=== PATIENT | female | born 1955 | race Caucasian/White ===

== ENCOUNTER 2016-11-11 11:41 | Outpatient (CLI) | payer OTHER ==
[2016-11-11 12:53] LABS: #Basophils 0.1 thou/uL (0.0-0.2); #Eosinphils 0.2 thou/uL (0.0-0.7); #Lymphocytes 1.9 thou/uL (1.20-3.40); #Monocytes 0.7 thou/uL (0.11-0.59); #Neutrophils 7.1 thou/uL (1.40-6.50); %Basophils 0.5 % (0.0-1.0); %Eosinophils 1.9 % (0.0-10.0); %Monocytes 6.6 % (0.0-10.0); Hematocrit 38.7 % (36.0-47.0); Mean Platelet Volume 5.4 fL (7.4-10.4); Red Blood Cell (RBC) Count 4.17 mill/uL (4.20-5.40); White Blood Cell (WBC) Count 9.9 thou/uL (4.8-10.8)
[2016-11-11 13:11] LABS: Hemoglobin A1c 5.7 % (4.0-6.0)
[2016-11-11 13:13] LABS: ALT (SGPT) 21 U/L (0-55); AST (SGOT) 16 U/L (5-34); Alkaline Phosphatase 94 U/L (40-150); Anion Gap 14 mmol/L (10-20); BUN (Urea Nitrogen) 11 mg/dL (9.8-20.1); Bilirubin, Total 0.3 mg/dL (0.2-1.2); Calc. Creatinine Clearance 0 mL/min (70-130); Calcium 8.8 mg/dL (7.8-10.44); Carbon Dioxide 26 mmol/L (23-31); Chloride 106 mmol/L (98-107); Estimated GFR-MDRD 71; Globulin 2.2 g/dL (2.4-3.5); LDL Cholesterol, Calculated 97 mg/dL; Protein, Total 6.1 g/dL (5.8-8.1)
== END 2016-11-11 11:42 ==
LOC: HPCALD 11:41
PROVIDERS: ATTEND Family Medicine
DX: I10 Essential (primary) hypertension (principal); E78.5 Hyperlipidemia, unspecified; E55.9 Vitamin D deficiency, unspecified; Z86.39 Personal history of other endocrine, nutritional and metabolic disease
CPT/HCPCS: 36415; 80053; 80061; 82306; 83036; 85025

== ENCOUNTER 2017-05-25 13:30 | Outpatient (CLI) | payer OTHER ==
[2017-05-25 15:50] LABS: #Basophils 0.1 thou/uL (0.0-0.2); #Eosinphils 0.2 thou/uL (0.0-0.7); #Lymphocytes 2.1 thou/uL (1.20-3.40); #Monocytes 0.8 thou/uL (0.11-0.59); #Neutrophils 7.8 thou/uL (1.40-6.50); %Basophils 0.9 % (0.0-1.0); %Eosinophils 1.8 % (0.0-10.0); %Lymphocytes 19.1 % (21.0-51.0); %Monocytes 6.8 % (0.0-10.0); %Neutrophils 71.3 % (42.0-75.0); Hemoglobin 13.5 g/dL (12.0-16.0); Mean Corpuscular HGB CONC 33.3 g/dL (32.0-36.0); Mean Corpuscular Hemoglobin 29.4 pg (27.0-31.0); Mean Corpuscular Volume 88.3 fl (81.0-99.0); Mean Platelet Volume 5.8 fL (7.4-10.4); Platelet Count 370 thou/uL (130-400); RBC Distribution Width 13.2 % (11.5-14.5); Red Blood Cell (RBC) Count 4.57 mill/uL (4.20-5.40); White Blood Cell (WBC) Count 10.9 thou/uL (4.8-10.8)
[2017-05-25 16:09] LABS: ALT (SGPT) 17 U/L (8-55); AST (SGOT) 18 U/L (5-34); Albumin 4.1 g/dL (3.4-4.8); Alkaline Phosphatase 98 U/L (40-150); Anion Gap 15 mmol/L (10-20); BUN (Urea Nitrogen) 14 mg/dL (9.8-20.1); Bilirubin, Total 0.3 mg/dL (0.2-1.2); Calc. Creatinine Clearance 0 mL/min (70-130); Calcium 8.5 mg/dL (7.8-10.44); Carbon Dioxide 25 mmol/L (23-31); Chloride 106 mmol/L (98-107); Estimated GFR-MDRD 68; Globulin 2.5 g/dL (2.4-3.5); Glucose 95 mg/dL (80-115); Potassium 4.4 mmol/L (3.5-5.1); Protein, Total 6.6 g/dL (6.0-8.3); Sodium 142 mmol/L (136-145)
[2017-05-25 16:26] LABS: Free T4 (Free Thyroxine) 0.97 ng/dL (0.70-1.48); Thyroid Stimulating Hormone 1.7951 uIU/mL (0.35-4.94); Vitamin D, 25 Hydroxy 30.2 ng/ml (> 30.0)
== END 2017-05-25 13:31 | disposition home or self-care (01) ==
LOC: HPCALD 13:30
PROVIDERS: ATTEND Family Medicine
DX: N39.0 Urinary tract infection, site not specified (principal); E03.9 Hypothyroidism, unspecified; E55.9 Vitamin D deficiency, unspecified; I10 Essential (primary) hypertension
CPT/HCPCS: 36415; 80053; 82306; 84439; 84443; 85025; 87086

== ENCOUNTER 2018-10-07 11:43 | Outpatient (CLI) | payer MEDICARE ==
--- NOTE | 2018-10-07 18:20 | RAD ---
RIGHT KNEE FOUR VIEWS: 10/07/18 No fracture or joint effusion was seen. the articular surfaces of the joint are smooth. There is at m ost minimal medial joint space narrowing but no large osteophytes. IMPRESSION: No acute finding. POS: HOME
== END 2018-10-07 11:44 | disposition home or self-care (01) ==
LOC: BURRAD 11:43
PROVIDERS: ATTEND Family Medicine
DX: M25.561 Pain in right knee (principal)

== ENCOUNTER 2020-04-16 11:30 | Outpatient (CLI) | payer MEDICARE ==
--- NOTE | 2020-04-16 17:32 | RAD ---
LUMBAR SPINE THREE VIEWS: Date: 04-16-2020 FINDINGS: Three views show no fracture or acute bony change. Minimal spondylolisthesis of L4 on L5 appears to b e due to facet arthritis. Minor osteophytes are seen in the lower thoracic region. The SI joints are symmetrical. Assuming the film is correctly labelled, gas in the stomach suggests that the duodenal bulb lies to t he left of the midline rather than right. I am not sure of the significance of this finding. I note t hat there are clips in the right upper quadrant which I presume are from a prior cholecystectomy, how ever, there is also an ovoid soft tissue density in the vicinity of where the gallbladder would be th at resembles a gallbladder. It may just be fluid filled bowel. If the patient continues with abdomina l symptoms, than it might be worthwhile doing a CT of her abdomen to sort out any potential pathology or anatomical variance in this region. IMPRESSION: 1. Minor degenerative changes of the spine, but no acute findings. 2. See comments above regarding findings in the upper abdomen. If GI symptoms predominate, a CT would be indicated as there are several areas whose exact etiology are not completely clear. Code T POS: HOME
== END 2020-04-16 11:31 | disposition home or self-care (01) ==
LOC: BURRAD 11:30
PROVIDERS: ATTEND Family Medicine
DX: M54.5 Low back pain (principal); M47.816 Spondylosis without myelopathy or radiculopathy, lumbar region
CPT/HCPCS: 72100

== ENCOUNTER 2020-04-16 12:07 | Emergency (ER) | payer MEDICARE ==
[2020-04-16 12:39] LABS: #Basophils 0.2 thou/uL (0.0-0.2); #Eosinphils 0.2 thou/uL (0.0-0.7); #Lymphocytes 3.3 thou/uL (1.20-3.40); #Monocytes 0.9 thou/uL (0.11-0.59); #Neutrophils 7.2 thou/uL (1.40-6.50); %Basophils 1.3 % (0.0-1.0); %Lymphocytes 27.7 % (21.0-51.0); %Monocytes 7.8 % (0.0-10.0); %Neutrophils 61.2 % (42.0-75.0); Hemoglobin 13.1 g/dL (12.0-16.0); Mean Corpuscular HGB CONC 31.2 g/dL (32.0-36.0); Mean Corpuscular Hemoglobin 28.9 pg (27.0-31.0); Mean Corpuscular Volume 92.7 fL (78.0-98.0); Mean Platelet Volume 5.7 fL (7.4-10.4); Platelet Count 307 thou/uL (130-400); RBC Distribution Width 13.5 % (11.5-14.5); Red Blood Cell (RBC) Count 4.51 mill/uL (4.20-5.40); White Blood Cell (WBC) Count 11.8 thou/uL (4.8-10.8)
[2020-04-16] MEDS ORDERED: Meclizine HCl 25 MG TAB ONE (12:47)
[2020-04-16 12:53] LABS: ALT (SGPT) 20 U/L (8-55); AST (SGOT) 21 U/L (5-34); Alkaline Phosphatase 75 U/L (40-110); Anion Gap 14 mmol/L (10-20); BUN (Urea Nitrogen) 13 mg/dL (9.8-20.1); Bilirubin, Total 0.4 mg/dL (0.2-1.2); CK (CPK) 717 U/L (29-168); Calc. Creatinine Clearance 0 mL/min (70-130); Calcium 8.8 mg/dL (7.8-10.44); Carbon Dioxide 24 mmol/L (23-31); Chloride 106 mmol/L (98-107); Estimated GFR-MDRD 74; Globulin 2.6 g/dL (2.4-3.5); Glucose 123 mg/dL (80-115); Potassium 3.8 mmol/L (3.5-5.1); Protein, Total 6.6 g/dL (6.0-8.3); Sodium 140 mmol/L (136-145)
--- NOTE | 2020-04-16 13:49 | RAD ---
PORTABLE CHEST: Date: 04-16-2020 FINDINGS: An AP portable film at 1247 shows mild cardiomegaly but no congestive change. The lungs are clear. Th ere are no effusions. IMPRESSION: Mild cardiomegaly. POS: HOME
== END 2020-04-16 14:05 | disposition home or self-care (01) ==
LOC: BURERS 12:07
DX: R55 Syncope and collapse (principal); I10 Essential (primary) hypertension; E78.00 Pure hypercholesterolemia, unspecified; E03.9 Hypothyroidism, unspecified; F32.9 Major depressive disorder, single episode, unspecified
CPT/HCPCS: 71045; 80053; 82550; 83880; 84484; 85025; 93005; 96360

== ENCOUNTER 2020-05-08 07:56 | Outpatient (CLI) | payer MEDICARE ==
--- NOTE | 2020-05-08 14:33 | CT ---
CT OF THE ABDOMEN WITH AND WITHOUT CONTRAST: DATE: 05/08/2020. FINDINGS: Spiral CT of the abdomen was done pre- and post-IV contrast for evaluation of abdominal pain and equi vocal findings on a recent plain radiograph. The lung bases are clear. The liver, spleen, pancreas, adrenal gland, and abdominal aorta showed no acute findings. There has been a prior cholecystectomy. The right kidney is slightly malrotated but otherwise appears normal. There appears to be moderate h ydronephrosis, and as best as I can tell, it is probably due to UPJ narrowing (likely longstanding). I believe it is this rather than a large parapelvic cyst. The left ureter is normal in size from it s origin at the renal pelvis through the lower abdomen. There is a very vague, nondescript lucency i n the lower pole of the left kidney. Statistically, this is most likely a cyst; however, I would rec ommend doing an elective ultrasound to be sure that this is only a cyst and nothing solid. The bowel shows no distention or significant wall thickening. No inflammatory changes are seen aroun d bowel. There is a small fat-filled ventral hernia in the midline in the epigastric region and a 2n d small fat-filled umbilical hernia at that level. Regarding the equivocal soft tissue abnormality seen on the recent plain film, I do not see any actua l mass or abnormality of concern to explain the shadows. Thus, they were most likely unopacified bow el. IMPRESSION: 1. No acute findings to explain any generalized abdominal pain. 2. Moderate left hydronephrosis that appears to be due to due to ureteropelvic junction narrowing, l ikely longstanding). 3. Vague lucency, no bigger than 1 cm, in the lower left kidney that is statistically most likely a cyst. An elective ultrasound should be considered to be sure. This might be done in concert with re ferral to a urologist to determine if any action is needed regarding the apparent ureteropelvic junct ion narrowing. POS: HOME
[2020-05-08] MEDS ORDERED: Iopamidol 370 76% 100 ML VIAL ONE (15:58)
== END 2020-05-08 07:57 | disposition home or self-care (01) ==
LOC: BURCT 07:56
PROVIDERS: ATTEND Family Medicine
DX: R10.84 Generalized abdominal pain (principal); R93.7 Abnormal findings on diagnostic imaging of other parts of musculoskeletal system; R19.01 Right upper quadrant abdominal swelling, mass and lump; N13.0 Hydronephrosis with ureteropelvic junction obstruction
CPT/HCPCS: 74170; Q9967

== ENCOUNTER 2020-09-20 08:52 | Outpatient (CLI) | payer MEDICARE ==
--- NOTE | 2020-09-20 11:38 | RAD ---
ABDOMEN 1 VIEW: DATE: 09/20/2020. FINDINGS: Supine views show no dilation of bowel to suggest obstruction. The amount of fecal material in the c olon has mildly increased. No calcifications of concern were seen. The lung bases seem clear. Clip s are noted in the right upper quadrant, probably from a prior cholecystectomy. IMPRESSION: Mild constipation. POS: [facility]
== END 2020-09-20 08:53 | disposition home or self-care (01) ==
LOC: BURRAD 08:52
PROVIDERS: ATTEND Family Medicine
DX: R15.9 Full incontinence of feces (principal); K59.00 Constipation, unspecified
CPT/HCPCS: 74018

== ENCOUNTER 2021-01-24 08:46 | Outpatient (CLI) | payer MEDICARE | END 2021-01-24 08:47 | disposition home or self-care (01) | LOC: BURRAD 08:46 | PROVIDERS: ATTEND Registered Nurse Community Health | DX: R06.02 Shortness of breath (principal) | CPT/HCPCS: 71046 ==

== ENCOUNTER 2021-01-31 08:27 | Emergency (ER) | payer MEDICARE ==
[2021-01-31 17:06] LABS: SARS-CoV-2 PCR by NAA Not Detected (NotDetected)
== END 2021-01-31 09:00 | disposition home or self-care (01) ==
LOC: BURERS 08:27
DX: J06.9 Acute upper respiratory infection, unspecified (principal); Z20.822 Contact with and (suspected) exposure to COVID-19; I10 Essential (primary) hypertension
CPT/HCPCS: 87635; 99283; U0003; U0005

== ENCOUNTER 2021-06-28 14:00 | Emergency (ER) | payer MEDICARE, OTHER ==
[2021-06-29 20:57] LABS: SARS-CoV-2 PCR by NAA Not Detected (NotDetected)
== END 2021-06-28 15:09 | disposition home or self-care (01) ==
LOC: BURERS 14:00
DX: Z20.822 Contact with and (suspected) exposure to COVID-19 (principal); I10 Essential (primary) hypertension
CPT/HCPCS: U0003; U0005; 99283

== ENCOUNTER 2021-08-14 14:08 | Emergency (ER) | payer MEDICARE, OTHER | END 2021-08-14 14:35 | disposition home or self-care (01) | LOC: BURERS 14:08 | DX: L03.116 Cellulitis of left lower limb (principal); I10 Essential (primary) hypertension; R60.0 Localized edema | CPT/HCPCS: 99283 ==

== ENCOUNTER 2021-09-03 12:02 | Outpatient (CLI) | payer MEDICARE | END 2021-09-03 12:03 | disposition home or self-care (01) | LOC: BURRAD 12:02 | PROVIDERS: ATTEND Family Medicine | DX: M54.50 Low back pain, unspecified (principal) | CPT/HCPCS: 72100 ==

== ENCOUNTER 2021-10-20 07:42 | Emergency (ER) | payer MEDICARE ==
[2021-10-20 08:09] LABS: #Basophils 0.1 thou/uL (0.0-0.2); #Eosinphils 0.2 thou/uL (0.0-0.7); #Lymphocytes 1.6 thou/uL (1.20-3.40); #Monocytes 0.6 thou/uL (0.11-0.59); #Neutrophils 3.8 thou/uL (1.40-6.50); %Basophils 1.3 % (0.0-1.0); %Eosinophils 2.8 % (0.0-10.0); %Lymphocytes 24.9 % (21.0-51.0); %Monocytes 9.8 % (0.0-10.0); %Neutrophils 61.3 % (42.0-75.0); Hemoglobin 9.6 g/dL (12.0-16.0); Mean Corpuscular Hemoglobin 29.9 pg (27.0-31.0); Mean Corpuscular Volume 88.1 fL (78.0-98.0); Mean Platelet Volume 5.1 fL (7.4-10.4); Platelet Count 235 thou/uL (130-400); RBC Distribution Width 12.8 % (11.5-14.5); Red Blood Cell (RBC) Count 3.19 mill/uL (4.20-5.40); White Blood Cell (WBC) Count 6.3 thou/uL (4.8-10.8)
[2021-10-20 08:18] LABS: INR-International Normal Ratio 1.1; Prothrombin Time 14.1 sec (12.0-14.7)
[2021-10-20 08:19] LABS: PTT 26.4 sec (22.9-36.1)
[2021-10-20 08:26] LABS: ALT (SGPT) 24 U/L (8-55); AST (SGOT) 24 U/L (5-34); Alkaline Phosphatase 57 U/L (40-110); Anion Gap 12 mmol/L (10-20); BUN (Urea Nitrogen) 10 mg/dL (9.8-20.1); Bilirubin, Total 0.2 mg/dL (0.2-1.2); Calc. Creatinine Clearance 0 mL/min (70-130); Calcium 8.1 mg/dL (7.8-10.44); Carbon Dioxide 23 mmol/L (23-31); Chloride 111 mmol/L (98-107); Globulin 2.1 g/dL (2.4-3.5); Glucose 164 mg/dL (80-115); Potassium 3.4 mmol/L (3.5-5.1); Protein, Total 5.1 g/dL (5.8-8.1); Sodium 143 mmol/L (136-145)
== END 2021-10-20 10:54 | disposition short-term general hospital (02) ==
LOC: BURERS 07:42
DX: K92.2 Gastrointestinal hemorrhage, unspecified (principal); D62 Acute posthemorrhagic anemia; I10 Essential (primary) hypertension
CPT/HCPCS: 80053; 85025; 85610; 85730; 99285

== ENCOUNTER 2021-11-12 15:54 | Emergency (ER) | payer MEDICARE ==
[2021-11-12 16:36] LABS: #Basophils 0.1 thou/uL (0.0-0.2); #Eosinphils 0.3 thou/uL (0.0-0.7); #Lymphocytes 1.7 thou/uL (1.20-3.40); #Monocytes 0.6 thou/uL (0.11-0.59); #Neutrophils 4.5 thou/uL (1.40-6.50); %Eosinophils 4.5 % (0.0-10.0); %Lymphocytes 23.7 % (21.0-51.0); %Monocytes 8.6 % (0.0-10.0); %Neutrophils 62.2 % (42.0-75.0); Hemoglobin 9.8 g/dL (12.0-16.0); Mean Corpuscular HGB CONC 31.8 g/dL (32.0-36.0); Mean Corpuscular Hemoglobin 29.1 pg (27.0-31.0); Mean Corpuscular Volume 91.6 fL (78.0-98.0); Mean Platelet Volume 5.7 fL (7.4-10.4); Platelet Count 241 thou/uL (130-400); RBC Distribution Width 14.9 % (11.5-14.5); Red Blood Cell (RBC) Count 3.37 mill/uL (4.20-5.40); White Blood Cell (WBC) Count 7.2 thou/uL (4.8-10.8)
[2021-11-12 16:52] LABS: ALT (SGPT) 23 U/L (8-55); AST (SGOT) 22 U/L (5-34); Albumin 3.8 g/dL (3.4-4.8); Alkaline Phosphatase 72 U/L (40-110); Anion Gap 14 mmol/L (10-20); BUN (Urea Nitrogen) 9 mg/dL (9.8-20.1); Bilirubin, Total 0.5 mg/dL (0.2-1.2); Calc. Creatinine Clearance 0 mL/min (70-130); Calcium 8.9 mg/dL (7.8-10.44); Carbon Dioxide 25 mmol/L (23-31); Chloride 107 mmol/L (98-107); Globulin 2.6 g/dL (2.4-3.5); Glucose 138 mg/dL (80-115); Potassium 3.6 mmol/L (3.5-5.1); Protein, Total 6.4 g/dL (5.8-8.1); Sodium 142 mmol/L (136-145)
[2021-11-13 13:36] LABS: SARS-CoV-2 PCR by NAA Not Detected (NotDetected)
== END 2021-11-12 17:42 | disposition home or self-care (01) ==
LOC: BURERS 15:54
DX: J06.9 Acute upper respiratory infection, unspecified (principal); I87.2 Venous insufficiency (chronic) (peripheral); Z20.822 Contact with and (suspected) exposure to COVID-19; I10 Essential (primary) hypertension; J45.909 Unspecified asthma, uncomplicated; E03.9 Hypothyroidism, unspecified; E78.00 Pure hypercholesterolemia, unspecified
CPT/HCPCS: 71045; 80053; 83880; 84484; 85025; U0003; U0005; 36415

== ENCOUNTER 2021-11-14 16:31 | Emergency (ER) | payer MEDICARE | END 2021-11-14 16:57 | disposition home or self-care (01) | LOC: BURERS 16:31 | DX: J06.9 Acute upper respiratory infection, unspecified (principal); R60.0 Localized edema; I10 Essential (primary) hypertension; J45.909 Unspecified asthma, uncomplicated; E03.9 Hypothyroidism, unspecified; E78.00 Pure hypercholesterolemia, unspecified | CPT/HCPCS: 99281 ==

== ENCOUNTER 2021-11-29 09:57 | Emergency (ER) | payer MEDICARE | END 2021-11-29 10:59 | disposition home or self-care (01) | LOC: BURERS 09:57 | DX: S30.0XXA Contusion of lower back and pelvis, initial encounter (principal); I10 Essential (primary) hypertension; J45.909 Unspecified asthma, uncomplicated; E03.9 Hypothyroidism, unspecified; E78.00 Pure hypercholesterolemia, unspecified; W01.0XXA Fall on same level from slipping, tripping and stumbling without subsequent striking against object, initial encounter | CPT/HCPCS: 99283 ==

== ENCOUNTER 2022-02-25 09:02 | Emergency (ER) | payer MEDICARE ==
[2022-02-25] MEDS ORDERED: Ibuprofen 800 MG TAB ONE (09:30)
== END 2022-02-25 09:47 | disposition home or self-care (01) ==
LOC: BURERS 09:02
DX: I88.9 Nonspecific lymphadenitis, unspecified (principal); E03.9 Hypothyroidism, unspecified; E78.00 Pure hypercholesterolemia, unspecified; I10 Essential (primary) hypertension
CPT/HCPCS: 99283

== ENCOUNTER 2022-06-28 10:34 | Emergency (ER) | payer MEDICARE ==
[2022-06-28] MEDS ORDERED: HYDROcodone/Acetaminophen 5/325 mg Tablet ONE (10:53)
== END 2022-06-28 12:14 | disposition home or self-care (01) ==
LOC: BURERS 10:34
DX: M17.12 Unilateral primary osteoarthritis, left knee (principal); M25.552 Pain in left hip; J45.909 Unspecified asthma, uncomplicated; E03.9 Hypothyroidism, unspecified; E78.00 Pure hypercholesterolemia, unspecified; I10 Essential (primary) hypertension; Z79.899 Other long term (current) drug therapy

== ENCOUNTER 2022-11-03 09:48 | Emergency (ER) | payer MEDICARE ==
[2022-11-03 10:45] LABS: #Basophils 0.1 thou/uL (0.0-0.2); #Eosinphils 0.2 thou/uL (0.0-0.7); #Lymphocytes 1.8 thou/uL (1.20-3.40); #Monocytes 0.9 thou/uL (0.11-0.59); #Neutrophils 5.5 thou/uL (1.40-6.50); %Eosinophils 2.2 % (0.0-10.0); %Lymphocytes 21.3 % (21.0-51.0); %Monocytes 11.1 % (0.0-10.0); %Neutrophils 64.4 % (42.0-75.0); Hemoglobin 12.3 g/dL (12.0-16.0); Mean Corpuscular HGB CONC 33.2 g/dL (32.0-36.0); Mean Corpuscular Hemoglobin 29.2 pg (27.0-31.0); Mean Corpuscular Volume 88.1 fl (78.0-98.0); Mean Platelet Volume 5.1 fL (7.4-10.4); Platelet Count 370 10x3/uL (130-400); RBC Distribution Width 13.9 % (11.5-14.5); Red Blood Cell (RBC) Count 4.22 mill/uL (4.20-5.40); White Blood Cell (WBC) Count 8.5 10x3/uL (4.8-10.8)
[2022-11-03 11:07] LABS: ALT (SGPT) 21 U/L (8-55); AST (SGOT) 18 U/L (5-34); Albumin 3.9 g/dL (3.4-4.8); Alkaline Phosphatase 82 U/L (40-110); Anion Gap 16 mmol/L (10-20); BUN (Urea Nitrogen) 9 mg/dL (9.8-20.1); Bilirubin, Total 0.4 mg/dL (0.2-1.2); Calc. Creatinine Clearance 0 mL/min (70-130); Calcium 8.8 mg/dL (7.8-10.44); Carbon Dioxide 25 mmol/L (23-31); Chloride 104 mmol/L (98-107); Estimated GFR 74; Glucose 146 mg/dL (80-115); Potassium 3.5 mmol/L (3.5-5.1); Protein, Total 6.9 g/dL (5.8-8.1); Sodium 141 mmol/L (136-145)
[2022-11-03] MEDS ORDERED: Furosemide 40 MG TAB ONE (11:27)
[2022-11-03] MEDS ORDERED: Clindamycin 150 MG CAP ONE (11:27)
== END 2022-11-03 11:40 | disposition home or self-care (01) ==
LOC: BURERS 09:48
DX: L03.116 Cellulitis of left lower limb (principal); E03.9 Hypothyroidism, unspecified; E78.00 Pure hypercholesterolemia, unspecified; Z79.899 Other long term (current) drug therapy
CPT/HCPCS: 36415; 71045; 80053; 83880; 84484; 85025; 93005

== ENCOUNTER 2022-11-07 09:07 | Emergency (ER) | payer MEDICARE ==
[2022-11-07] MEDS ORDERED: HYDROcodone/Acetaminophen 5/325 mg Tablet ONE (09:36)
== END 2022-11-07 09:38 | disposition home or self-care (01) ==
LOC: BURERS 09:07
DX: I87.2 Venous insufficiency (chronic) (peripheral) (principal); I10 Essential (primary) hypertension; E03.9 Hypothyroidism, unspecified; E78.00 Pure hypercholesterolemia, unspecified; Z79.899 Other long term (current) drug therapy
CPT/HCPCS: 99282